=== PATIENT | female | born 1975 | race Caucasian/White ===

== ENCOUNTER 2019-10-16 08:55 | Emergency (ER) | payer OTHER ==
[~2019-10-16] VITALS: Ht 157.5 cm; Wt 65.8 kg
--- OUTSIDE RECORDS SUMMARY | 2019-10-16 08:58 | XMS ---
PreManage Notification: LETI MEJIA [employer] Events No recent Security Events currently on file CRITERIA MET - [facility] JERARDO DONALDSON Nurse Practitioner: Current PHONE: [phone] Nayla has no Care Guidelines for this patient. EDebby VISIT COUNT (12 MO.) 1 Nabila Dey M.C. 1 SAUD Bearden TOTAL 2 NOTE: Visits indicate total known visits. ED/UCC VISIT TRACKING (12 MO.) 10/16/2019 08:[address] [facility] TYPE: Emergency COMPLAINT: - CHEST PAINS, SOB 09/17/2019 14:53 [facility] [place]: [facility]gent Care DIAGNOSES: - Fall - Lateral epicondylitis, right elbow [facility] DIAGNOSES: - left wrist injury - Wrist Injury - Wrist Injury (Major) - Effusion, left wrist INPATIENT VISIT TRACKING (12 MO.) No inpatient visits to display in this time frame [email or web address]
[2019-10-16] MEDS ORDERED: METHYLPHENIDATE10 M1 PO (09:08)
[2019-10-16] MEDS ORDERED: METHYLPHENIDATE5 MG PO (09:08)
[2019-10-16] MEDS ORDERED: FLUOXETINE HCL40 MG PO (09:08)
[2019-10-16] MEDS ORDERED: OMEPRAZOLE20 M1 PO (10:41)
--- NOTE | 2019-10-17 22:56 | EKG ---
[facility] [address] [place], [place] [address] Signed Normal sinus rhythm with sinus arrhythmia Low voltage QRS Cannot rule out Anterior infarct , age undetermined Abnormal ECG No previous ECGs available Confirmed by CHEO MORALES MD ([id number]) on 10/17/2019 10:56:12 PM Electronically Signed By: CHEO MORALES MD 10/17/19 2256 PATIENT NAME: LETI MEJIA Electrocardiogram DATE OF : 79 PHYSICIAN: CHEO MORALES MD REPORT #: [id number] REPORT IS CONFIDENTIAL AND NOT TO BE RELEASED WITHOUT AUTHORIZATION
== END 2019-10-16 11:27 | disposition home or self-care (01) ==
LOC: ED 08:55
DX: R07.9 Chest pain, unspecified (principal); Z88.2 Allergy status to sulfonamides; Z91.041 Radiographic dye allergy status; Z79.899 Other long term (current) drug therapy
CPT/HCPCS: 71045; 80053; 83735; 84484; 85025; 85379; 93005; 93010; 96374; 96375; 99285-25; J1885